=== PATIENT | female | born 1950 | race Caucasian/White ===

== ENCOUNTER 2023-02-03 06:28 | Day surgery (SDC) | payer MEDICARE ==
[~2023-02-03] VITALS: Ht 154.9 cm; Wt 85.9 kg
[2023-02-03] MEDS ORDERED: DILT60TA41 PO (06:59)
[2023-02-03] MEDS ORDERED: PANT-47 PO (06:59)
[2023-02-03] MEDS ORDERED: FLEC50TA28 PO (06:59)
[2023-02-03] MEDS ORDERED: RIVA15TA PO (07:00)
[2023-02-03] MEDS ORDERED: estradiol cream TOP (07:01)
[2023-02-03] MEDS ORDERED: mybetrig (07:02)
[2023-02-03] MEDS ORDERED: POLY119P2 PO (07:03)
[2023-02-03] MEDS ORDERED: HYDR-3964 PO (07:03)
[2023-02-03 07:06] VITALS: BP 147/79; PULSE 60; RESP 23
[2023-02-03] MEDS ORDERED: LIDOcaine Viscous 15ml cup ONE (07:36)
[2023-02-03] MEDS ORDERED: fentaNYL/PF 50MCG/1 ML 2ML syringe ONE (07:36)
[2023-02-03] MEDS ORDERED: MIDAZolam 1 MG/ML 5ML VIAL ONE (07:36)
[2023-02-03 08:05] VITALS: BP 155/71; PULSE 60; RESP 16; O2SAT 97
[2023-02-03 08:15] VITALS: BP 145/89; PULSE 59; RESP 14; O2SAT 98
[2023-02-03 08:25] VITALS: BP 145/71; PULSE 57; RESP 16; O2SAT 98
[2023-02-03 08:35] VITALS: BP 143/69; PULSE 57; RESP 15; O2SAT 99
== END 2023-02-03 08:40 | disposition home or self-care (01) ==
LOC: GI LAB 06:28
PROVIDERS: ATTEND Surgery
DX: K44.9 Diaphragmatic hernia without obstruction or gangrene (principal); K20.80 Other esophagitis without bleeding; I48.91 Unspecified atrial fibrillation; Z79.899 Other long term (current) drug therapy; Z90.710 Acquired absence of both cervix and uterus; Z85.828 Personal history of other malignant neoplasm of skin; Z88.8 Allergy status to other drugs, medicaments and biological substances
CPT/HCPCS: 43239; 88305; G0500; J2250; J3010; J7030; Z7512; 99152; A4620